=== PATIENT | male | born 1985 | race Caucasian/White ===

== ENCOUNTER 2019-07-31 11:59 | Emergency (ER) | payer OTHER ==
[2019-07-31 12:42] VITALS: BP 111/79
--- NOTE | 2019-07-31 13:18 | UC ---
Nausea/Vomiting/Diarrhea HPI - HPI Summary HPI Summary: 33-year-old male comes in with a chief complaint diarrhea. For about 3 days he' s had burning epigastric pain and a cough primarily in the morning and also he has diarrhea almost every time he eats or drinks. Reports the diarrhea is dark in color. No fevers measured. Does have a history of GERD. Is not on any antacid medicines. Yesterday something fell on his right hand and he punched the item fell on his hand and he has pain and swelling over his right third knuckle. Has been taking some ibuprofen. No complaint of any weakness or numbness in the hand. And pain is worse with movement better with rest. Normal urination. - History of Current Complaint Chief Complaint: UCGI Stated Complaint: DIARRHEA,COUGH Time Seen by Provider: 07/31/19 12:46 Pain Intensity: 0 - Allergies/Home Medications Allergies/Adverse Reactions: Allergies Allergy/AdvReac Type Severity Reaction Status Date / Time Penicillins Allergy Hives Verified 07/31/19 12:37 PMH/Surg Hx/FS Hx/Imm Hx Previously Healthy: Yes GI/ History: Gastroesophageal Reflux - Surgical History Surgical History: None - Family History Known Family History: Positive: Non-Contributory - Social History Alcohol Use: Occasionally Substance Use Type: None Smoking Status (MU): Heavy Every Day Tobacco Smoker Type: Cigarettes Amount Used/How Often: 1 1/2-2 PPD Review of Systems All Other Systems Reviewed And Are Negative: Yes Constitutional: Positive: Other - SEE HPI Skin: Positive: Negative Eyes: Positive: Negative ENT: Positive: Nasal Discharge Respiratory: Positive: Cough, Other - SEE HPI Cardiovascular: Positive: Negative Gastrointestinal: Positive: Abdominal Pain, Vomiting, Other - SEE HPI Genitourinary: Positive: Negative Motor: Positive: Negative Neurovascular: Positive: Negative Musculoskeletal: Positive: Other: - SEE HPI Neurological: Positive: Negative Psychological: Positive: Negative Is Patient Immunocompromised?: No Physical Exam Triage Information Reviewed: Yes Appearance: Well-Appearing, No Pain Distress, Well-Nourished Vital Signs: Initial Vital Signs Temp 98.6 F 07/31/19 12:37 Pulse 81 07/31/19 12:37 Resp 16 07/31/19 12:37 BP 111/79 07/31/19 12:37 Pulse Ox 99 07/31/19 12:37 Vital Signs Reviewed: Yes Eye Exam: Normal Eyes: Positive: Conjunctiva Clear Neck: Positive: Supple Respiratory: Positive: Lungs clear, Normal breath sounds, No respiratory distress Cardiovascular: Positive: RRR Abdomen Description: Positive: Other: - Mild tenderness to palpation in the epigastrium. Lower abdomen is nontender to palpation. Bowel Sounds: Positive: Present Musculoskeletal: Positive: Other: - On the right hand the third knuckle is swollen and mildly tender to palpation is full range of motion full-strength and normal capillary refill. Neurological: Positive: Alert Psychological: Positive: Age Appropriate Behavior Skin Exam: Normal Naus/Vom/Diarrhea Course/Dx - Course Course Of Treatment: Reinforcing Steel Machine Operator: Luis Wilcox Daniel ([id number]) Docent Coordinator: LEX ( NUANCE) Report Date: 07/31/2019 13:13:00 Report Status: Final ====== Start of Report Content Patient Name: NANCY LMEUS Medical Record#: [id number] Ordering Physician: Valeriano Butts MD Acct.#: [id number] : Age: 33 Sex: M Location: [facility]RG[facility]ARE [facility] Exam Date: 07/31/19 1246 ADM Status: [facility] ER Order Information: HAND - RIGHT MINIMUM 3 VIEWS Accession Number: [id number] CPT: 50367 HISTORY: PAIN S/P INJURY . COMPARISONS : None relevant available at the time of dictation. VIEWS: 4, Frontal, lateral, and oblique views of the right hand FINDINGS: BONE DENSITY: Normal. BONES: There is no displaced fracture. JOINTS: There is no arthropathy. ALIGNMENT: There is no dislocation. SOFT TISSUES: Unremarkable. OTHER FINDINGS: None. IMPRESSION: NO ACUTE OSSEOUS INJURY. IF SYMPTOMS PERSIST, RECOMMEND REPEAT IMAGING. < Electronically signed by Luis Wilcox MD in OV> 07/31/191308 Dictated By : Luis Wilcox MD Dictated Date/Time: 07/31/191308 Transcribed Date/Time : 07/31/191308 Copy to: CC:No Primary Care Phys,NOPCP ; Valeriano Butts MD Imaging - [facility] - [facility] - [facility] [address] [address] ph [phone]) ph [phone] ph ) End of Report Content I discussed the x-rays with the patient. No fracture seen at this time. Patient will ice the area he's been told to not take ibuprofen as is stomach is been bothering him. Follow-up with orthopedics or sports medicine if the hand is not improved. We will treat for GERD with the morning coughing and epigastric burning pain. With the patient know that if things got worse with pain fevers he feels ill blood in his stools he is to get reevaluated again right away. Patient to go home with a stool sample kit. - Differential Dx/Diagnosis Provider Diagnosis: Diarrhea, Epigastric pain, GERD (gastroesophageal reflux disease), Contusion of right hand Condition At Discharge: Stable Discharge ED - Sign-Out/Discharge Documenting (check all that apply): Patient Departure All imaging exams completed and their final reports reviewed: Yes - Discharge Plan Condition: Stable Disposition: HOME Prescriptions: Omeprazole 20 mg PO BID #20 capsule. Patient Education Materials: Gastroesophageal Reflux Disease (ED), Acute Diarrhea (ED), Hand Sprain (ED), Epigastric Pain (ED) Forms: *Work Release Referrals: [facility] [Outside] Yasmani Antunez MD [Medical Doctor] - Additional Instructions: FOLLOW UP WITH YOUR DOCTOR IF NOT COMPLETELY IMPROVED. Follow-up with orthopedics if your hand is not completely improved. GET REEVALUATED SOONER IF NOT IMPROVING OR GO TO THE EMERGENCY DEPARTMENT IF WORSE; PAIN, FEVER, BLOOD IN YOUR STOOL, YOU FEEL ILL OR ANY QUESTIONS OR CONCERNS. - Billing Disposition and Condition Condition: STABLE Disposition: Home
== END 2019-07-31 13:45 | disposition home or self-care (01) ==
LOC: UCCORT 11:59
DX: R19.7 Diarrhea, unspecified (principal); R10.13 Epigastric pain; K21.9 Gastro-esophageal reflux disease without esophagitis; S60.221A Contusion of right hand, initial encounter; F17.210 Nicotine dependence, cigarettes, uncomplicated; R05 Cough; R11.10 Vomiting, unspecified; Z88.0 Allergy status to penicillin; W20.8XXA Other cause of strike by thrown, projected or falling object, initial encounter; Y92.9 Unspecified place or not applicable
CPT/HCPCS: 99202; G0463

== ENCOUNTER 2019-09-12 13:56 | Emergency (ER) | payer SELFPAY ==
[2019-09-12 14:11] VITALS: BP 130/78
--- NOTE | 2019-09-12 14:37 | UC ---
Abdominal Pain Male HPI - HPI Summary HPI Summary: 33 yo male with 2 day history of dyspepsia/tasting acid some epigastric pain no diarrhea nausea vomiting x 1 smoker no etoh no NSAIDS one caffeinated beverage/day - History of Current Complaint Chief Complaint: UCGI Stated Complaint: VOMITTING Time Seen by Provider: 09/12/19 14:27 Hx Obtained From: Patient Onset/Duration: Gradual Onset, Lasting Days Timing: Constant Severity Initially: Mild Severity Currently: Mild Pain Intensity: 2 - quesy Pain Scale Used: 0-10 Numeric Location: Epigastric Radiates: No Character: Burning Aggravating Factor(s): Nothing Alleviating Factor(s): Nothing Associated Signs And Symptoms: Positive: Decreased Appetite, Nausea, Vomiting. Negative: Diaphoresis, Fever, Cough, Chest Pain, Dizzy, Back Pain, Constipation , Blood in Stool, Urinary Symptoms, Diarrhea, Penile Discharge Similar Episode/Dx As:: gastritis- improved with omeprazole Male Torso: 1 - pain - Allergies/Home Medications Allergies/Adverse Reactions: Allergies Allergy/AdvReac Type Severity Reaction Status Date / Time Penicillins Allergy Hives Verified 09/12/19 14:11 Home Medications: Home Medications Omeprazole 20 mg PO DAILY #14 capsule. 09/12/19 [Rx] Ondansetron TAB* [Zofran Tab*] 4 mg PO Q6H PRN #10 tab 09/12/19 [Rx] PMH/Surg Hx/FS Hx/Imm Hx Previously Healthy: Yes - Surgical History Surgical History: None - Family History Known Family History: Positive: Hypertension Negative: Cardiac Disease, Diabetes, Renal Disease - Social History Alcohol Use: Occasionally Substance Use Type: None Smoking Status (MU): Heavy Every Day Tobacco Smoker Type: Cigarettes Amount Used/How Often: 1 1/2-2 PPD Cessation Counseling: Patient Advised to Stop Review of Systems All Other Systems Reviewed And Are Negative: Yes Constitutional: Positive: Negative Skin: Positive: Negative Eyes: Positive: Negative ENT: Positive: Negative Respiratory: Positive: Negative Cardiovascular: Positive: Negative Gastrointestinal: Positive: Abdominal Pain, Vomiting, Nausea Genitourinary: Positive: Negative Motor: Positive: Negative Neurovascular: Positive: Negative Musculoskeletal: Positive: Negative Neurological/Mental Status: Positive: Negative Psychological: Positive: Negative Physical Exam Triage Information Reviewed: Yes Appearance: Well-Appearing, No Pain Distress, Well-Nourished Vital Signs: Initial Vital Signs Temp 98.9 F 09/12/19 14:06 Pulse 107 09/12/19 14:06 Resp 14 09/12/19 14:06 BP 130/78 09/12/19 14:06 Pulse Ox 98 09/12/19 14:06 Vital Signs Reviewed: Yes Eyes: Positive: Conjunctiva Clear ENT: Positive: Hearing grossly normal, Uvula midline. Negative: Nasal drainage , Trismus, Hoarse voice Dental Exam: Normal Neck: Positive: Supple, Nontender, No Lymphadenopathy Respiratory: Positive: Lungs clear, Normal breath sounds, No respiratory distress, No accessory muscle use Cardiovascular: Positive: RRR, No Murmur Abdomen Description: Positive: Soft. Negative: Nontender - slight epigastric tenderness, CVA Tenderness (R), CVA Tenderness (L), Distended, Guarding, Hernia @, Peritoneal Signs, Pulsatile Mass, Splenomegaly Bowel Sounds: Positive: Present Musculoskeletal: Positive: ROM Intact, No Edema Neurological: Positive: Alert Psychological Exam: Normal Skin Exam: Normal Abd Pain Male Course/Dx - Differential Dx/Clinical Impression Provider Diagnosis: Gastritis, GERD (gastroesophageal reflux disease), Elevated BP without diagnosis of hypertension, Smoker Discharge ED - Sign-Out/Discharge Documenting (check all that apply): Patient Departure All imaging exams completed and their final reports reviewed: No Studies - Discharge Plan Condition: Stable Disposition: HOME Prescriptions: Omeprazole 20 mg PO DAILY #14 capsule. Ondansetron TAB* [Zofran Tab*] 4 mg PO Q6H PRN #10 tab PRN Reason: Nausea Patient Education Materials: Gastritis (ED), Gastroesophageal Reflux Disease ( ED) Forms: *Work Release Referrals: [facility] [place] [Outside] - 2 Weeks Additional Instructions: you need to decrease or stop smoking TO ER FOR NEW OR WORSENING SYMPTOMS recheck in 4 days if not better you need to find a primary care provider to follow you you may need to be referred to a specialist if you fail to improve blood work is pending MYLANTA 2 tablespoons every 2 hours while awake for 2-3 days - Billing Disposition and Condition Condition: STABLE Disposition: Home
[2019-09-12] MEDS ORDERED: Ondansetron ODT TAB* 4 MG PO ONE (14:38)
[2019-09-12 19:16] LABS: ABS Basophils 0.1 10^3/ul (0-0.2); ABS Eosinophils 0.3 10^3/ul (0-0.6); ABS Lymphocytes 2.7 10^3/ul (1.0-4.8); ABS Monocytes 0.6 10^3/ul (0-0.8); Hematocrit 47 % (42-52); Hemoglobin 16.2 g/dL (14.0-18.0); Lymphocyte % 30.9 %; Mean Corpuscular HGB Conc 34 g/dL (31-36); Mean Corpuscular Hemoglobin 29 pg (27-31); Mean Corpuscular Volume 84 fL (80-94); Mean Platelet Volume 9.5 fL (7.4-10.4); Platelet Count 292 10^3/uL (150-450); Red Blood Count 5.63 10^6 /uL (4.18-5.48); Red Cell Distribution Width 13 % (10-15); White Blood Count 8.6 10^3/uL (3.5-10.8)
== END 2019-09-12 14:52 | disposition home or self-care (01) ==
LOC: UCCORT 13:56
DX: K29.70 Gastritis, unspecified, without bleeding (principal); K21.9 Gastro-esophageal reflux disease without esophagitis; Z88.0 Allergy status to penicillin; F17.210 Nicotine dependence, cigarettes, uncomplicated; R03.0 Elevated blood-pressure reading, without diagnosis of hypertension; Z79.899 Other long term (current) drug therapy
CPT/HCPCS: 36415; 83690; 85025; 99212; A9270-GY; G0463

== ENCOUNTER 2019-09-27 14:06 | Emergency (ER) | payer SELFPAY ==
[2019-09-27 14:21] VITALS: BP 118/77
[2019-09-27] MEDS ORDERED: Ondansetron ODT TAB* 4 MG PO ONE (14:57)
--- NOTE | 2019-09-27 15:01 | UC ---
FLU HPI - HPI Summary HPI Summary: 33-year-old male comes in with a chief complaint of influenza-like symptoms for 2 days. He's had rhinorrhea that screenings, postnasal drip is gotten a cough that makes his sore throat worse. Otherwise a sore throats mild. Today is very nauseous and he threw up. He has chronic GERD symptoms with burning in the epigastrium. Also is feeling very fatigued 2 days ago. No abdominal pain. Has generalized body aches. Patient fell yesterday and injured his left hand. He has pain in the left fifth knuckle. No complaint of loss of range of motion pain is worse with palpation and movement. - History of Current Complaint Chief Complaint: UCRespiratory Stated Complaint: FEVER,COUGH,VOMITING Time Seen by Provider: 09/27/19 14:41 Pain Intensity: 0 - Allergy/Home Medications Allergies/Adverse Reactions: Allergies Allergy/AdvReac Type Severity Reaction Status Date / Time Penicillins Allergy Hives Verified 09/27/19 14:17 Home Medications: Home Medications Albuterol HFA INHALER* [Ventolin HFA Inhaler*] 1 - 2 puff INH Q4H PRN 09/27/19 [ History Confirmed 09/27/19] Azithromyxin LANG (NF) [Z-Lang (Zithromax) 250 mg tabs #6] 2 tab PO .TODAY, THEN 1 DAILY #6 tab 09/27/19 [Rx] Omeprazole 20 mg PO BID #30 capsule. 09/27/19 [Rx] Ondansetron ODT TAB* [Zofran 4 MG Odt TAB*] 4 mg PO Q6H PRN #10 tab.odt [Rx] Phenylephrine/Dm/Acetaminop/GG [Cold & Flu Severe Daytime 0-89-215-325 mg] 1 tab PO ONCE 09/27/19 [History Confirmed 09/27/19] PMH/Surg Hx/FS Hx/Imm Hx Previously Healthy: Yes GI/ History: Gastroesophageal Reflux - Surgical History Surgical History: None - Family History Known Family History: Positive: Hypertension, Non-Contributory Negative: Cardiac Disease, Diabetes, Renal Disease - Social History Alcohol Use: Rare Substance Use Type: None Smoking Status (MU): Heavy Every Day Tobacco Smoker Type: Cigarettes Amount Used/How Often: 1/2 - 1 PPD Review of Systems All Other Systems Reviewed And Are Negative: Yes Constitutional: Positive: Other - see hpi Skin: Positive: Negative Eyes: Positive: Negative ENT: Positive: Sore Throat, Nasal Discharge, Sinus Congestion Respiratory: Positive: Cough. Negative: Shortness Of Breath Cardiovascular: Positive: Negative Gastrointestinal: Positive: Negative Motor: Positive: Negative Neurovascular: Positive: Negative Musculoskeletal: Positive: Myalgia, Other: - see hpi Neurological/Mental Status: Positive: Negative Psychological: Positive: Negative Is Patient Immunocompromised?: No Physical Exam Triage Information Reviewed: Yes Appearance: No Pain Distress, Well-Nourished, Ill-Appearing - mild Vital Signs: Initial Vital Signs Temp 98.2 F 09/27/19 14:15 Pulse 98 09/27/19 14:15 Resp 17 09/27/19 14:15 BP 118/77 09/27/19 14:15 Pulse Ox 98 09/27/19 14:15 Vital Signs Reviewed: Yes Eye Exam: Normal Eyes: Positive: Conjunctiva Clear ENT: Positive: Pharyngeal erythema, Nasal congestion, Nasal drainage, TMs normal Neck: Positive: Supple Respiratory: Positive: Lungs clear, Normal breath sounds, No respiratory distress Cardiovascular: Positive: RRR Abdomen Description: Positive: Nontender, Soft Musculoskeletal: Positive: Strength Intact, ROM Intact, Other: - Tender to palpation on the dorsum of the distal left fifth metacarpal. Fingers and hand has full range of motion normal strength normal capillary refill normal sensation. Neurological: Positive: Alert, Muscle Tone Normal Psychological: Positive: Age Appropriate Behavior Skin Exam: Normal Flu Course/Dx - Course Course Of Treatment: Lump Room Supervisor: Damaso Rock ([id number]) Chief Specialist Leed: LEX (LEX) Report Date: 09/27/2019 15:27:00 Report Status: Final Start of Report Content Patient Name: NANCY LEMUS Medical Record#: [id number] Ordering Physician: Valeriano Butts MD Acct.#: [id number] : 1985 Age : 33 Sex: M Location: URGENT CARE [facility] Exam Date: 09/27/19 6276 ADM Status : REG ER Order Information: HAND - LEFT MINIMUM 3 VIEWS Accession Number: [id number] CPT: 13294 INDICATION: Left hand injury. TECHNIQUE: 4 views of the left hand were obtained. FINDINGS: The soft tissues are unremarkable. The bone mineralization is within normal limits. No fracture is identified. Anatomic alignment is maintained. The joint spaces are preserved. IMPRESSION: NO FRACTURE IDENTIFIED. _ <Electronically signed by Damaso Rock MD in OV> 09/27/19 1523 Dictated By: Damaso Rock MD Dictated Date/Time: 09/27/19 1522 Transcribed Date/Time: 1522 Copy to: CC:No Primary Care Phys,NOPCP ; Valeriano Butts MD Imaging - [place] [facility] [address] [address] ph [phone]) ph ([phone]) ph ([phone]) End of Report Content ========= I discussed the x-rays with the patient. No fracture seen. Plan will be icing anti-inflammatories and follow-up with orthopedics if not completely improved. Patient is having some GERD symptoms we'll treat with omeprazole also Zofran for the nausea. Discussed viral versus bacterial infections and the role of antibiotics. Patient prefers to be on an antibiotic at this time. - Differential Dx/Diagnosis Provider Diagnosis: Sinusitis, Nausea & vomiting, GERD (gastroesophageal reflux disease), Contusion of left hand Discharge ED - Sign-Out/Discharge Documenting (check all that apply): Patient Departure All imaging exams completed and their final reports reviewed: Yes - Discharge Plan Condition: Stable Disposition: HOME Prescriptions: Azithromyxin LANG (NF) [Z-Lang (Zithromax) 250 mg tabs #6] 2 tab PO .TODAY, THEN 1 DAILY #6 tab Omeprazole 20 mg PO BID #30 capsule. Ondansetron ODT TAB* [Zofran 4 MG Odt TAB*] 4 mg PO Q6H PRN #10 tab.odt PRN Reason: Nausea/Vomiting Patient Education Materials: Sinusitis (ED), Gastroesophageal Reflux Disease ( ED), Acute Nausea and Vomiting (ED), Hand Sprain (ED) Forms: *Work Release Referrals: [facility] [place] [facility] [Outside] Yasmani Antunez MD [Medical Doctor] - Additional Instructions: FOLLOW UP WITH YOUR DOCTOR IF NOT COMPLETELY IMPROVED. GET REEVALUATED IF NOT IMPROVING OR WORSE OR ANY QUESTIONS OR CONCERNS. - Billing Disposition and Condition Condition: STABLE Disposition: Home
[2019-09-27 15:36] LABS: Influenza A Molecular Negative (Negative); Influenza B Molecular Negative (Negative)
== END 2019-09-27 16:04 | disposition home or self-care (01) ==
LOC: UCCORT 14:06
DX: J32.9 Chronic sinusitis, unspecified (principal); R11.2 Nausea with vomiting, unspecified; K21.9 Gastro-esophageal reflux disease without esophagitis; S60.222A Contusion of left hand, initial encounter; J02.9 Acute pharyngitis, unspecified; Z79.899 Other long term (current) drug therapy; Z88.0 Allergy status to penicillin; F17.210 Nicotine dependence, cigarettes, uncomplicated; W19.XXXA Unspecified fall, initial encounter; Y92.9 Unspecified place or not applicable
CPT/HCPCS: 87651; 99212; A9270-GY; G0463